=== PATIENT | male | born 1965 | race Caucasian/White ===

== ENCOUNTER 2020-11-20 18:32 | Emergency (ER) | payer OTHER, SELFPAY ==
--- NOTE | ~2020-11-20 | CT_ITS ---
EXAMINATION: CT ABDOMEN AND PELVIS WITHOUT CONTRAST CLINICAL INFORMATION: Left lower quadrant pain COMPARISON: None TECHNIQUE: Multidetector volumetric imaging was performed from the superior aspect of the liver through the pubic symphysis. Sagittal and coronal reformatted images were obtained on the technologist's workstation. This CT examination was performed using dose optimization techniques as appropriate, variously including the following: *Automated exposure control *Adjustment of mA and/or kV according to patient size (this includes techniques or standardized protocols for targeted exams where dose is matched to indication/reason for exam; i.e. extremities or head) *Use of iterative reconstruction technique DLP: 869 mGy-cm FINDINGS: LUNG BASES: The visualized lung bases are unremarkable. LIVER, GALLBLADDER, AND BILIARY TREE: The liver is normal in size and shape but demonstrates decreased attenuation consistent with hepatic steatosis. 2 intrahepatic low density masses are seen the largest measuring 2.8 cm consistent with cysts. No worrisome solid focal hepatic lesion or biliary ductal dilatation is present. The gallbladder is unremarkable with no evidence of significant sized radiopaque gallstones, gallbladder wall thickening, or obvious pericholecystic inflammatory changes. There is one tiny punctate area of increased density in the gallbladder that could even represent noise but might represent a tiny stone (4:172). PANCREAS: Unremarkable. SPLEEN: Unremarkable. ADRENAL GLANDS: Unremarkable. KIDNEYS AND URETERS: Left: A 9 x 6 x 9 mm left renal pelvic stone is present. This measures 945 Hounsfield units and there is 13 cm from the posterior axillary line. There is associated pelvocaliectasis and mild intrarenal hydronephrosis. The distal ureter is mildly dilated but a distal ureteral calculus is not seen. A tiny punctate 2 mm lower pole calculus is present. Marked perirenal stranding is seen. No renal masses are seen Right: Normal. No stones, masses or hydronephrosis. BLADDER: Unremarkable. GASTROINTESTINAL TRACT: Diverticular changes present in the colon without evidence of diverticulitis. The small and large bowel are otherwise unremarkable. The appendix is unremarkable. ABDOMINAL WALL: No significant hernia is appreciated. LYMPH NODES: Normal. VASCULAR: Unremarkable. PELVIC VISCERA: Prostate and seminal vesicles appear normal. OSSEOUS STRUCTURES: Degenerative changes present at L5-S1 with sclerosis and vacuum phenomena CT/CT abdomen pelvis wo con IMPRESSION: A 9 x 6 x 9 mm stone in left renal pelvis is present with associated inflammatory changes in the renal pelvis and around the kidney along with pelvocaliectasis. The distal ureter is dilated but no obstructing stone is seen. Perhaps a small stone has passed. Perhaps there is intermittent obstruction of the ureteropelvic junction by the above-mentioned pelvic stone. Incidental note made of hepatic steatosis, hepatic cysts, colonic diverticulosis and L5-S1 degenerative changes
[2020-11-20 18:46] VITALS: BP 172/77; PULSE 74; RESP 18; TEMP 37.1; O2SAT 96; BMI 31.5
[2020-11-20 20:42] LABS: MANUAL DIFF FLAG SCAN; PLT CLUMP 1; SCAN SMEAR FLAG 1
[2020-11-20 20:44] LABS: Basophils Absolute Auto 0.1 X10*3/uL (0.0-0.2); Basophils Percent Auto 0.6 % (0-2); Eosinophils Absolute Auto 0.1 X10*3/uL (0.0-0.4); Eosinophils Percent Auto 0.5 % (0-4); Hemoglobin 14.6 g/dl (14.0-18.0); Imm Gran Abs Auto 0.06 X10*3/uL (0.00-0.03); Imm Gran Pct Auto 0.4 % (0.0-0.4); Lymphocytes Absolute Auto 1.9 X10*3/uL (1.2-4.9); Mean Corpuscular HGB Conc 32.4 g/dl (31.0-36.0); Mean Corpuscular Volume 89.3 fL (80-98); Mean Platelet Volume 12.1 fL (9.4-12.4); Monocytes Absolute Auto 1.1 X10*3/uL (0.1-1.2); Monocytes Percent Auto 7.7 % (2-11); Neutrophils Absolute Auto 11.5 X10*3/uL (2.0-8.3); Neutrophils Percent Auto 77.8 % (45-73); Red Blood Count 5.04 X10*6/uL (4.60-5.80); Red Cell Distribution Width 13.4 % (11.0-16.0); White Blood Count 14.8 X10*3/uL (4.8-10.8)
[2020-11-20 20:51] LABS: Platelet Count 55 X10*3/uL (160-400)
[2020-11-20 21:05] LABS: Alanine Aminotransferase 40 U/L (0-40); Albumin Level 4.2 g/dL (3.5-5.0); Alkaline Phosphatase 98 U/L (39-117); Anion Gap 14 (12-20); Aspartate Amino Transferase 28 U/L (5-37); Bilirubin Total 1.1 mg/dL (0.0-1.0); Blood Urea Nitrogen 19 mg/dL (9-16); Calcium 8.6 mg/dL (8.4-10.2); Carbon Dioxide 24 mmol/L (22-29); Chloride 108 mmol/L (96-108); Creatinine Clr Calc Pharmacy 91.2; Estimated Glomerular Filt Rate > 60; Glucose Random 105 mg/dL (60-115); Lipase 13 U/L (8-78); Potassium 4.3 mmol/L (3.3-5.1); Sodium 142 mmol/L (135-145); Total Protein 7.1 g/dL (6.5-8.0)
[2020-11-20] MEDS: 0.9 % Sodium Chloride 1,000 ML 999 ML IV (21:19)
[2020-11-20 21:23] LABS: SLIDE REVIEW VERIFIED
[2020-11-20 21:32] LABS: Glucose Urine UA NEG (NEG); Leukocyte Esterase Urine NEG (NEG); Nitrite Urine NEG (NEG); Urine Blood 3+ (NEG); Urine Ketones NEG (NEG); Urine Protein NEG (NEG-TRACE)
[2020-11-20 21:34] LABS: Appearance Urine CLEAR; Color Urine YELLOW
[2020-11-20 21:43] LABS: WBC Urine 0-2 /HPF (0-4)
[2020-11-20 21:44] LABS: Squamous Epithelial Cell Urine TRACE /LPF
[2020-11-20 22:36] VITALS: BP 157/79; PULSE 60; RESP 14
--- NOTE | 2020-11-20 22:36 | PC.NURSE ---
PT REPORTS PAIN RESOLVED, NO OTHER COMPLAINTS, AWAITING CT SCAN.
[2020-11-20 23:19] LABS: INTERNATIONAL NORM RATIO 1.1 (0.9-1.1); Prothrombin Time 12.5 SEC (10.8-13.0)
--- NOTE | 2020-11-20 23:19 | PC.NURSE ---
Report received from TRACY Stockton. Pt observed to be sitting up at edge of bed on tablet without outwards signs of distress noted. Pt was observed to ambulate to and from the CT imaging room with even and sanders gait. Pt with visitor at bedside. Patient is visible to staff and remains fully clothed.
[2020-11-20 23:35] LABS: Partial Thromboplastin Time 43.1 SEC (24.1-38.0)
--- NOTE | 2020-11-20 23:40 | PC.NURSE ---
Report received from Kath MOLINA at change of shift. Pt could be overheard stating to his bedside visitor I haven't even seen my nurse or doctor this RN apologizes and introduced herself explaining that I would be over after rounds. Upon arrival to bedside patient could still be noted on his ipad without distress noted. PT expressed his desires to leave after he reports he feels better and confirms that his pain has resolved. This RN did advise the patient about the risks of leaving AMA as we are still awaiting the final read of his CT scan. PT reports that he will follow up with his PCP and feels that all tests that will be completed have been and hes been here long enough . TERESA Lakhani made aware and confirms that he will speak with the patient and his family
--- NOTE | 2020-11-20 23:48 | ED.ABDPAIN ---
HPI - Abdominal Pain General Chief Complaint: Abdominal Pain Stated Complaint: abd pain Time Seen by Provider: 11/20/20 20:29 Source: patient Mode of arrival: ambulatory Limitations: no limitations History of Present Illness HPI narrative: Patient presents to ED for left lower quadrant pain palpation for the past week. Patient states presently in the ER pain has significantly improved. Patient denies any nausea, vomiting, fever, chills, or diarrhea. Patient denies any dysuria or hematuria Related Data Allergies Allergy/AdvReac Type Severity Reaction Status Date / Time No Known Allergies Allergy Unverified 05/12/20 17:28 [No Known Allergies*] Review of Systems Review of Systems Yes all other systems are reviewed and are negative Constitutional: Reports as per HPI and Reports no additional constitutional complaints Eyes: Reports as per HPI and Reports no additional eye complaints Reports system reviewed and no additional complaints, except as documented and Reports as per HPI Cardiovascular: Reports as per HPI and Reports no additional cardiovascular complaints Respiratory: Reports as per HPI and Reports no additional respiratory complaints Gastrointestinal: Reports as per HPI, Reports no additional gastrointestinal complaints and Reports abdominal pain (Left lower qaudrant) Genitourinary: Reports no additional male genitourinary complaints and Reports as per HPI Musculoskeletal: Reports no additional musculoskeletal complaints and Reports as per HPI Reports system reviewed and no additional complaints, except as documented and Reports as per HPI Psychiatric: Reports no additional psychiatric complaints and Reports as per HPI Physical Exam Vital Signs: Vital Signs: Last Vital Signs Temp 98.8 F 11/20/20 18:46 Pulse 60 11/20/20 22:36 Resp 14 11/20/20 22:36 BP 157/79 H 11/20/20 22:36 Pulse Ox 96 11/20/20 18:46 Body Mass Index 31.5 Const: General: cooperative, healthy appearing, comfortable, no acute distress, well developed, alert and awake Orientation/consciousness: patient oriented x3 HENMT: Head: Yes normal to inspection, Yes No palpable skull fracture present, Yes normocephalic and Yes atraumatic Eyes: General: appearance normal, both eyes and all related structures Neck: Neck: Yes normal visual inspection, Yes full ROM, Yes no lymphadenopathy, Yes no meningeal signs, Yes trachea midline and Yes supple Chest: Chest palpation & inspection: normal inspection of the chest and normal palpation of entire chest wall Resp: Effort & Inspection: normal respiratory effort and able to speak in complete sentences Auscultation: clear to auscultation bilaterally Cardio: Jugular venous distension: no JVD Heart sounds: S1 normal heart sound present and S2 normal heart sound present GI: Inspection: Yes normal to inspection and No abdominal wall ecchymosis Palpation (GI): Soft to palpation, not firm, nontender, no guarding and not rigid : General: Yes no CVA tenderness Back/Spine/Pelvis: Back: no CVA tenderness, No CVA tenderness and No back tenderness Skin: General skin exam: no rashes or lesions noted and elasticity normal Neuro: General: patient oriented x3, no meningeal signs and CN's II-XI intact bilaterally Cranial nerves: Yes CN's II-XII intact bilaterally Extrem: General: Yes normal to inspection and Yes full ROM Psych: Appearance: grossly normal, well kempt and not disheveled Course Course Course Narrative: Patient will have labs and urine. Most likely patient will be sent for abdominal CT due to patient stating having left lower quadrant pain early in the day. Reevaluation(s) Reevaluation #1: Urine showed blood so patient was sent for abdominal CT scan. Patient later during the ED visit wanted to sign out against medical advice. Patient did not want to wait for CT scan results. Patient was informed that we want to make sure there was no medical/surgical abdominal emergency, but patient still refused. Patient was agreeable to sign against medical advice even the inflamed risk of , infection, sepsis disability, and increased quantity of life. Patient still signed against medical advice. Reevaluation #2: Patient's number was called and his answered the phone due to patient sleeping. was informed that CT scan showed possibly he passed the ureter stone any actually has 9 mm stone in left renal pelvis and that he should follow up with his with PCP for referral to urologist. She was also informed that patient return to the ED immediately if symptoms worsen. MDM - Abdominal Pain MDM Narrative Medical decision making narrative: Abdominal pain Lab Data Result diagrams: 11/20/20 20:36 11/20/20 20:36 Labs: Lab Results 11/20/20 11/20/20 11/20/20 Range/Units 20:36 20:36 20:36 WBC 14.8 H (4.8-10.8) X10*3/uL RBC 5.04 (4.60-5.80) X10*6/uL Hgb 14.6 (14.0-18.0) g/dl Hct 45.0 (42-52) % MCV 89.3 (80-98) fL MCH 29.0 (27.0-33.0) pg MCHC 32.4 (31.0-36.0) g/dl RDW 13.4 (11.0-16.0) % Plt Count 55 L (160-400) X10*3/uL MPV 12.1 (9.4-12.4) fL Immature Gran % (Auto) 0.4 (0.0-0.4) % Neut % (Auto) 77.8 H (45-73) % Lymph % (Auto) 13.0 L (20-40) % [place] % (Auto) 7.7 (2-11) % Eos % (Auto) 0.5 (0-4) % Baso % (Auto) 0.6 (0-2) % Lymph # (Auto) 1.9 (1.2-4.9) X10*3/uL [place] # (Auto) 1.1 (0.1-1.2) X10*3/uL Eos # (Auto) 0.1 (0.0-0.4) X10*3/uL Baso # (Auto) 0.1 (0.0-0.2) X10*3/uL Abs Immat Gran (auto) 0.06 H (0.00-0.03) X10*3/uL Absolute Neuts (auto) 11.5 H (2.0-8.3) X10*3/uL Absolute Nucleated RBC 0.000 (0.0-0.012) X10*3/uL Nucleated RBC % (auto) 0.0 (0.0-0.2) /100WBC Smear Tech's Comments VERIFIED PT 12.5 (10.8-13.0) SEC INR 1.1 (0.9-1.1) APTT 43.1 H (24.1-38.0) SEC Hold Blue Top SEE NOTE Sodium 142 (135-145) mmol/L Potassium 4.3 (3.3-5.1) mmol/L Chloride 108 (96-108) mmol/L Carbon Dioxide 24 (22-29) mmol/L Anion Gap 14 (12-20) BUN 19 H (9-16) mg/dL Creatinine 1.07 (0.5-1.4) mg/dL Estim Creat Clear Calc 91.2 Estimated GFR > 60 Random Glucose 105 (60-115) mg/dL Calcium 8.6 (8.4-10.2) mg/dL Total Bilirubin 1.1 H (0.0-1.0) mg/dL AST 28 (5-37) U/L ALT 40 (0-40) U/L Alkaline Phosphatase 98 (39-117) U/L Total Protein 7.1 (6.5-8.0) g/dL Albumin 4.2 (3.5-5.0) g/dL Lipase 13 (8-78) U/L Urine Color Urine Appearance Urine pH (5.0-8.0) Ur Specific Victoria (1.005-1.025) Urine Protein (NEG-TRACE) MG/DL Urine Glucose (UA) (NEG) MG/DL Urine Ketones (NEG) MG/DL Urine Blood (NEG) Urine Nitrite (NEG) Ur Leukocyte Esterase (NEG) Urine RBC (0) /HPF Urine WBC (0-4) /HPF Ur Squamous Epith Cells /LPF Urine Bacteria /LPF 11/20/20 Range/Units 21:24 WBC (4.8-10.8) X10*3/uL RBC (4.60-5.80) X10*6/uL Hgb (14.0-18.0) g/dl Hct (42-52) % MCV (80-98) fL MCH (27.0-33.0) pg MCHC (31.0-36.0) g/dl RDW (11.0-16.0) % Plt Count (160-400) X10*3/uL MPV (9.4-12.4) fL Immature Gran % (Auto) (0.0-0.4) % Neut % (Auto) (45-73) % Lymph % (Auto) (20-40) % [place] % (Auto) (2-11) % Eos % (Auto) (0-4) % Baso % (Auto) (0-2) % Lymph # (Auto) (1.2-4.9) X10*3/uL [place] # (Auto) (0.1-1.2) X10*3/uL Eos # (Auto) (0.0-0.4) X10*3/uL Baso # (Auto) (0.0-0.2) X10*3/uL Abs Immat Gran (auto) (0.00-0.03) X10*3/uL Absolute Neuts (auto) (2.0-8.3) X10*3/uL Absolute Nucleated RBC (0.0-0.012) X10*3/uL Nucleated RBC % (auto) (0.0-0.2) /100WBC Smear Tech's Comments PT (10.8-13.0) SEC INR (0.9-1.1) APTT (24.1-38.0) SEC Hold Blue Top Sodium (135-145) mmol/L Potassium (3.3-5.1) mmol/L Chloride (96-108) mmol/L Carbon Dioxide (22-29) mmol/L Anion Gap (12-20) BUN (9-16) mg/dL Creatinine (0.5-1.4) mg/dL Estim Creat Clear Calc Estimated GFR Random Glucose (60-115) mg/dL Calcium (8.4-10.2) mg/dL Total Bilirubin (0.0-1.0) mg/dL AST (5-37) U/L ALT (0-40) U/L Alkaline Phosphatase (39-117) U/L Total Protein (6.5-8.0) g/dL Albumin (3.5-5.0) g/dL Lipase (8-78) U/L Urine Color YELLOW Urine Appearance CLEAR Urine pH 6.0 (5.0-8.0) Ur Specific Victoria 1.020 (1.005-1.025) Urine Protein NEG (NEG-TRACE) MG/DL Urine Glucose (UA) NEG (NEG) MG/DL Urine Ketones NEG (NEG) MG/DL Urine Blood 3+ H (NEG) Urine Nitrite NEG (NEG) Ur Leukocyte Esterase NEG (NEG) Urine RBC 1-4 (0) /HPF Urine WBC 0-2 (0-4) /HPF Ur Squamous Epith Cells TRACE /LPF Urine Bacteria NONE /LPF Discharge Plan Discharge Clinical Impression: Abdominal pain Patient Disposition: Left Against Medical Advice Instructions: Abdominal Pain (ED) Additional Instructions: Return to the ED for worsening abdominal pain, nausea, vomiting, dizziness, fever, chills, flank pain, chest pain, shortness of breath, hematuria, dysuria, any other concerning symptoms Stand Alone Forms: Against Medical Advice Interventions: ED Discharge Assessment Last Done: 11/20/20 23:55 Discharge Date/Time: 11/20/20 23:55 Print Language: [facility] [facility] Past Medical History Medical History (Updated 11/20/20 @ 23:50 by TERESA Betancourt) HTN (hypertension) Social History Social History Advance Directives: No Advance Directives Information Provided: No
== END 2020-11-20 23:55 | disposition left against medical advice (07) ==
PROVIDERS: Physician Assistant; Emergency Provider Student in an Organized Health Care Education/Training Program; PCP Hospitalist
DX: N20.0 Calculus of kidney (principal); R10.32 Left lower quadrant pain; I10 Essential (primary) hypertension
CPT/HCPCS: 36415; 74176; 80053; 81001; 83690; 85025; 85610; 85730; 96360; 99284

== ENCOUNTER → 2020-12-02 14:08 | Outpatient (BNVA) | payer OTHER, SELFPAY | PROVIDERS: PCP Hospitalist; Visit Provider Urology ==

== ENCOUNTER → 2020-12-28 06:20 | Day surgery (SDC) | payer OTHER, SELFPAY ==
[2020-12-23 16:19] VITALS: BMI 31.5
--- NOTE | 2020-12-27 11:53 | HO.ANESPROP2 ---
HPI - Anesthesia Eval Consult details Narrative: 55yo M for Left Lithotripsy ESW No prev ESWL on record 10/2020 platelets low @ 55. Redraw DOS. Dr Murry notified, will not proceed if plts <150. Plts 72 DOS. Procedure cx'd. PMFSH Active Problems Active Problems: All Active Problems (Updated 12/23/20 @ 16:22 by Chloe Valdez) Nephrolithiasis (Acute) Past Medical History Medical History (Updated 12/30/20 @ 12:54 by Rachel Thomas MD) COVID-19 vaccine series completed Environmental allergies HTN (hypertension) Sleep apnea Surgical History Surgical History (Updated 12/30/20 @ 12:54 by Rachel Thomas MD) H/O cystoscopy Social History Social History (Updated 12/30/20 @ 12:55 by Theresa Valverde) Alcohol intake: former Smoking Status: Never smoker Meds Allergies Allergy/AdvReac Type Severity Reaction Status Date / Time No Known Allergies Allergy Verified 12/02/20 14:22 [No Known Allergies*] Home Medications Medication Instructions Recorded Confirmed Last Taken Type amlodipine 10 mg tablet 10 mg PO DAILY 12/02/20 12/30/20 12/28/20 History lisinopril 20 mg tablet 20 mg PO DAILY 12/02/20 12/30/20 Unknown History loratadine 10 mg PO DAILY 12/23/20 12/30/20 Unknown History multivitamin 1 tab PO DAILY 12/23/20 12/30/20 Unknown History Exam Exam Date and Time: December 27, 2020 1153 Height,Weight and Vital Signs: Height 5 ft 10 in Weight 99.79 kg Pertinent Lab Results Pertinent Lab Results: Laboratory Tests 11/20/20 20:36 Sodium 142 Potassium 4.3 Chloride 108 Carbon Dioxide 24 BUN 19 H Creatinine 1.07 Assessment and Plan Assessment Anesthesia Assessment: Chart Reviewed
--- NOTE | ~2020-12-28 | XR_ITS ---
EXAMINATION: XR ABDOMEN KUB CLINICAL INDICATION: Kidney stone COMPARISON: Previous CT of the abdomen and pelvis October 2020 TECHNIQUE: AP view of the abdomen. FINDINGS: There is a 1 cm density projecting over the left mid kidney suggestive of a left central renal stone. No right-sided stone is seen. No pelvic calcifications are seen. Bowel gas pattern and bony structures are normal. XR/XR KUB IMPRESSION: 1 cm central left renal stone.
[2020-12-28 06:58] VITALS: BP 149/81; PULSE 64; RESP 20; TEMP 36.1; O2SAT 97
[2020-12-28 07:04] LABS: PLT CLUMP 1
[2020-12-28 07:05] LABS: Hemoglobin 14.1 g/dl (14.0-18.0); Mean Corpuscular HGB Conc 32.8 g/dl (31.0-36.0); Mean Corpuscular Hemoglobin 29.7 pg (27.0-33.0); Mean Corpuscular Volume 90.7 fL (80-98); Mean Platelet Volume 11.4 fL (9.4-12.4); Red Blood Count 4.74 X10*6/uL (4.60-5.80); Red Cell Distribution Width 12.9 % (11.0-16.0); White Blood Count 7.7 X10*3/uL (4.8-10.8)
[2020-12-28] MEDS: Lactated Ringers 1,000 ML 100 ML IVCONT (07:06)
[2020-12-28 07:24] LABS: Platelet Count 67 X10*3/uL (160-400)
--- NOTE | 2020-12-28 07:37 | PC.NURSE ---
surgery canceled pt has low plts
== END ==
PROVIDERS: Nurse Practitioner; PCP Hospitalist; Visit Provider Urology
DX: N20.0 Calculus of kidney (principal); Z53.8 Procedure and treatment not carried out for other reasons; I10 Essential (primary) hypertension
CPT/HCPCS: 36415; 74018; 85027

== ENCOUNTER 2021-01-07 08:57 | Outpatient (REF) | payer OTHER, SELFPAY ==
[2021-01-17 16:57] LABS: Factor VIII Activity Clotting 94 % normal (50-180); PTT, Activated 31 sec (23-32); Ristocetin Cofactor 75 % normal (42-200)
== END 2021-01-07 08:58 | disposition home or self-care (01) ==
LOC: HO.LAB 08:57
PROVIDERS: PCP Hospitalist; Visit Provider Internal Medicine
DX: D69.6 Thrombocytopenia, unspecified (principal)
CPT/HCPCS: 36415; 85240; 85245; 85246; 85247; 85730

== ENCOUNTER → 2021-03-01 06:56 | Day surgery (SDC) | payer OTHER, SELFPAY ==
[2021-02-22 11:11] VITALS: BMI 3156.3
--- NOTE | 2021-02-28 09:09 | HO.ANESPROP2 ---
HPI - Anesthesia Eval Consult details Narrative: 03/01/21 CX'd d/t low platelets @ [age]yo M for Left Lithotripsy ESW No prev ESWL on record Low platelets. Last scheduled ESWL 12/2020 PLT=72, cx'd Seen by bhumi 12/2020, no definitive etiology for thrombocytopenia, ?autoimmune thrombocytopenia by exclusion. Considering bone marrow biopsy in future. PMFSH Active Problems Active Problems: All Active Problems (Updated 02/22/21 @ 11:14 by Denice Donis) Nephrolithiasis (Acute) Thrombocytopenia (Acute) Past Medical History Medical History (Updated 02/22/21 @ 11:14 by Denice Donis) COVID-19 vaccine series completed Environmental allergies HTN (hypertension) Sleep apnea Thrombocytopenia Surgical History Surgical History (Updated 02/22/21 @ 11:08 by Denice Donis) H/O cystoscopy History of prostate surgery Hx of wisdom tooth extraction Social History Social History (Updated 12/30/20 @ 12:55 by Theresa Valverde) Alcohol intake: former Patient Tobacco Use Status: Never used Tobacco Advance Directives Information Provided: No Meds Allergies Allergy/AdvReac Type Severity Reaction Status Date / Time No Known Allergies Allergy Verified 12/02/20 14:22 [No Known Allergies*] Home Medications Medication Instructions Recorded Confirmed Last Taken Type amlodipine 10 mg tablet 10 mg PO DAILY 12/02/20 02/22/21 12/28/20 History lisinopril 20 mg tablet 20 mg PO DAILY 12/02/20 02/22/21 Unknown History loratadine 10 mg PO DAILY 12/23/20 02/22/21 Unknown History multivitamin 1 tab PO DAILY 12/23/20 02/22/21 Unknown History Exam Exam Date and Time: February 28, 2021 0909 Height,Weight and Vital Signs: Height 5 ft 10 in Weight 9979 kg Assessment and Plan Assessment Anesthesia Assessment: Chart Reviewed
--- NOTE | ~2021-03-01 | XR_ITS ---
EXAMINATION: XR ABDOMEN KUB CLINICAL INDICATION: Left renal stones. COMPARISON: 12/28/2020 TECHNIQUE: AP view of the abdomen. FINDINGS: The bowel gas pattern is normal with no evidence of ileus or obstruction. There is a 1.2 cm calculus seen overlying the region of collecting system of the left kidney. This is unchanged in appearance. No calculi along the expected path of the left ureter is seen. The right psoas margin is intact. Superior aspect of the left psoas muscle line not well seen. Sacroiliac joints unremarkable. XR/XR KUB IMPRESSION: Stable appearance of 1.2 cm left collecting system calculus.
[2021-03-01 07:36] LABS: Hematocrit 42.5 % (42-52); Hemoglobin 14.3 g/dl (14.0-18.0); Mean Corpuscular HGB Conc 33.6 g/dl (31.0-36.0); Mean Corpuscular Hemoglobin 30.6 pg (27.0-33.0); Mean Platelet Volume 12.3 fL (9.4-12.4); Red Blood Count 4.67 X10*6/uL (4.60-5.80); White Blood Count 7.9 X10*3/uL (4.8-10.8)
[2021-03-01 07:37] VITALS: BP 134/80; PULSE 63; RESP 20; TEMP 36.7; O2SAT 97; BMI 33.0
[2021-03-01 07:37] LABS: Platelet Count 74 X10*3/uL (160-400)
[2021-03-01] MEDS: Acetaminophen 325 MG TABLET 650 MG PO (08:42)
--- NOTE | 2021-03-01 08:45 | MHC.SHP ---
Pre-Procedural Eval Section A Date of Service: 03/01/21 Section B Chief Complaint: calculus of kidney Details of Present Illness: left renal stone Relevant Social History: None Present Medications: see Short Stay Collaborative assessment Medical History: No relevant PMH History of Previous Operations: No relevant previous surgery Allergies: Allergies Allergy/AdvReac Type Severity Reaction Status Date / Time No Known Allergies Allergy Verified 12/02/20 14:22 [No Known Allergies*] Review of Systems Sugical H&P ROS: Negative: Constitution, Cardiovascular, Respiratory, Neurological, Psychiatric, Hem-Onc, Allergic/Immunologic, Gastrointestinal, Genitourinary, Musculoskeletal, Integumentary, Endocrine and Eyes/Ears/Nose/Throat Exam Surgical H&P Exam: Normal: HEENT, Normal: Heart, Normal: Lungs, Normal: Extremities, Normal: Abdomen, Normal: Skin and Normal: Neurological Plan Diagnosis/Plan: Unchanged (left eswl) I have reviewed the history and physical and performed a pertinent physical examination on my patient. No changes have occurred unless specified.
--- NOTE | 2021-03-01 09:20 | PC.NURSE ---
Per anesthesia Dr Rizvi & Dr Murry - due to low platelet count patient procedure to be cancelled for today.
== END ==
PROVIDERS: Nurse Practitioner; PCP Hospitalist; Visit Provider Urology
DX: N20.0 Calculus of kidney (principal); Z53.09 Procedure and treatment not carried out because of other contraindication; D69.6 Thrombocytopenia, unspecified
CPT/HCPCS: 36415; 74018; 85027

== ENCOUNTER → 2024-04-23 14:33 | Outpatient (RCR) | payer OTHER, SELFPAY ==
[2020-12-30 12:51] VITALS: BP 124/66; PULSE 68; RESP 12; TEMP 36.6; O2SAT 97; BMI 34.2
--- NOTE | 2020-12-30 12:54 | P.CNHO_ITS ---
Subjective - Subjective Chief complaint: Low platelets Patient: new to practice Consult date: 12/30/20 Requesting Physician: Dr. Murry Primary Care Provider: Jose George HPI - Consult Narrative Reason for consult: Thrombocytopenia Narrative: Aki Martin is a 55 year old male referred for evaluation of thrombocytopenia. He has had platelet counts ranging between 50-60 K since October 2020. He had blood work done twice at [facility], he does not recall any previous history of thrombocytopenia. He has a PCP in [facility] and has not been told of low platelets in the past. He has had prior lithotripsy procedures at [facility], done by previous urologist. He did report that he had delayed healing after the procedure. When asked specifically he says that he had hematuria for longer than expected. He has not had any other major surgeries. He has had wisdom teeth extraction as a teenager and not had any problems. No family history of bruising or bleeding. He does not consume alcohol and has no history of HIV or hepatitis. He is not on any new medication, he is on 2 blood pressure medications for several years. No history of fever, chills, loss of appetite or weight loss. He has received both doses of COVID-19 vaccination in October 2020. He was scheduled for lithotripsy procedure but this was canceled because of low platelets. Review of Systems - Constitutional Reports as per HPI, Reports no additional constitutional complaints - Cardiovascular Reports no additional cardiovascular complaints - Respiratory Reports no additional respiratory complaints - Gastrointestinal Reports no additional gastrointestinal complaints Oncology Screenings - ECOG Performance Status ECOG Performance Status: 0 [facility] Medical History: Medical History (Last Updated 12/23/20 @ 16:22 by Chloe Valdez) COVID-19 vaccine series completed Environmental allergies HTN (hypertension) Sleep apnea Surgical History: Surgical History (Last Updated 12/23/20 @ 16:19 by Chloe Valdez) H/O cystoscopy Social History: Social History (Last Updated 12/30/20 @ 12:55 by Theresa Valverde) Alcohol History: Alcohol intake: former Alcohol History Details: Alcohol intake frequency: does not drink Tobacco History: Smoking Status: Never smoker Smoking status: Never smoker Home Medications and Allergies Home Medications Medication Instructions Recorded Confirmed Type amlodipine 10 mg tablet 10 mg PO DAILY 12/02/20 12/30/20 History lisinopril 20 mg tablet 20 mg PO DAILY 12/02/20 12/30/20 History loratadine 10 mg PO DAILY 12/23/20 12/30/20 History multivitamin 1 tab PO DAILY 12/23/20 12/30/20 History Allergies Allergy/AdvReac Type Severity Reaction Status Date / Time No Known Allergies Allergy Verified 12/02/20 14:22 [No Known Allergies*] Physical Exam Vital signs: Vital Signs Temp 97.9 F 12/30/20 12:51 Pulse 68 12/30/20 12:51 Resp 12 12/30/20 12:51 BP 124/66 12/30/20 12:51 Pulse Ox 97 12/30/20 12:51 Intake & Output 12/29/20 12/30/20 12/30/20 18:59 06:59 18:59 Other: Weight 108.1 kg Weight in Grams [id number] Weight 108.1 kg - Constitutional Present: no acute distress - Routine HEENT Exam Head: Present: normal inspection Eye: Present: EOMI - Routine Respiratory Exam Absent: respiratory distress - Routine Cardiovascular Exam Cardiovascular: Present: S1, S2 Hem/Onc Consult Result - Labs CBC & Chem 7: 12/30/20 16:25 Assessment and Plan (1) Thrombocytopenia Status: Acute 1. This is a 55-year-old male diagnosed with thrombocytopenia in 2020. Platelet counts below 100 K on repeated blood work. He has never been told of low platelets in the past, his PCP states that he has no record of blood work in order to compare with a previous CBC. Patient denies any history of bruising or bleeding. He does not recall family history of low platelets or blood disorders. He is not on any medications that can cause thrombocytopenia, no history of alcoholism or chronic viral infections. His RBC and WBC counts are normal. He has no hematinic deficiencies and serum immunofixation is normal. No platelet clumping noted, normal kidney functions and normal hemoglobin, lack of coagulopathy and any acute symptoms rules out DIC and TTP. He may have autoimmune thrombocytopenia. This is a diagnosis of exclusion. I have explained to the patient that other bone marrow disorders such as lymphoma, myelodysplastic syndrome are in the differential. For a definitive diagnosis, bone marrow aspiration/biopsy would have to be performed. Although PTT was mildly elevated, mixing study was nondiagnostic as PTT elevation was not sufficient for mixing study to be meaningful. He has undergone prior lithotripsy procedures without any problems. I thank you for this consultation.
--- NOTE | 2020-12-30 14:38 | MHC.HEMONCMA ---
Patient came in for a consult today for a low platelet count, states that he is fine other than this issue and his kidney stone. Clinical summary was reviewed and updated. Patient did not get his labs drawn due to the excess wait and his being obligated to something else for a specific time. I did call him and left a voicemail for him to call back to schedule a time for him to have an appt for lab work.
[2020-12-30 16:40] LABS: Baso%MD 0.8 %; Eos%MD 1.8 %; Hematocrit 43.4 % (42-52); Hemoglobin 14.4 g/dl (14.0-18.0); IG%MD 0.2 %; Lymph%MD 21.6 %; Mean Corpuscular HGB Conc 33.2 g/dl (31.0-36.0); Mean Corpuscular Hemoglobin 30.1 pg (27.0-33.0); Mean Corpuscular Volume 90.8 fL (80-98); Mono%MD 9.8 %; Neut%MD 65.8 %; Red Blood Count 4.78 X10*6/uL (4.60-5.80); White Blood Count 9.8 X10*3/uL (4.8-10.8)
[2020-12-30 16:43] LABS: Platelet Count 72 X10*3/uL (160-400)
[2020-12-30 16:50] LABS: INTERNATIONAL NORM RATIO 1.1 (0.9-1.1); Prothrombin Time 12.9 SEC (10.8-13.0)
[2020-12-30 16:53] LABS: Partial Thromboplastin Time 40.8 SEC (24.1-38.0)
[2020-12-30 17:39] LABS: Folate 17.5 ng/mL (> or = 4.0); Vitamin B12 1081 pg/mL (200-900)
[2020-12-30 18:03] LABS: Band Neutrophils Percent 0 % (3-5); Basophils Abs Manual 0.1 X10*3/uL (0.0-0.3); Basophils Percent Manual 1 % (0-1); Eosinophils Absolute Manual 0.3 X10*3/UL (0.0-0.8); Eosinophils Percent Manual 3 % (0-4); Lymphocytes Absolute Manual 1.7 X10*3/uL (0.6-4.8); Lymphocytes Percent Manual 17 % (20-40); Monocytes Absolute Manual 0.6 X10*3/uL (0.0-1.2); Monocytes Percent Manual 6 % (2-11); Neutrophils Absolute Manual 7.2 X10*3/uL (2.2-7.9); Neutrophils Percent Manual 73 % (45-73); RBC Morphology NOTED
[2020-12-30 18:04] LABS: Platelet Estimate DECREASED (NORMAL); Platelet Morphology Comment NORMAL; Tear Drop Cells 2+ (3-5) /OIF
[2021-01-02 14:57] LABS: IgA 326 mg/dL (47-310); IgG 1027 mg/dL (600-1640); IgM 100 mg/dL (50-300); Prot Elec - Albumin 3.9 g/dL (3.8-4.8); Prot Elec - Alpha1 0.3 g/dL (0.2-0.3); Prot Elec - Alpha2 0.7 g/dL (0.5-0.9); Prot Elec - Beta 1 0.4 g/dL (0.4-0.6); Prot Elec - Beta 2 0.4 g/dL (0.2-0.5); Prot Elec - Total Protein 6.6 g/dL (6.1-8.1)
--- NOTE | 2021-01-02 15:05 | MHC.HEMONCMA ---
Dr Smith's office returned my call, the nurse states that she went back to when the patient started seeing Dr Smith which was in 2013 and the patient never had his blood work done. She states it was ordered but the patient never went and got it done. Dr Thomas notified of this information.
== END | disposition home or self-care (01) ==
LOC: HO.ONC 12-30 12:30
PROVIDERS: PCP Hospitalist; Referring Provider Urology; Visit Provider Internal Medicine
DX: D69.6 Thrombocytopenia, unspecified (principal); R79.1 Abnormal coagulation profile
CPT/HCPCS: 36415; 82607; 82746; 82784; 84155; 84165; 85007; 85027; 85610; 85611; 85730; 85732; 86334; 99214